=== PATIENT | female | born 1985 | race American Indian/Alaskan Native ===

== ENCOUNTER 2017-07-08 00:04 | Emergency (ER) | payer SELFPAY ==
[2017-07-08] MEDS ORDERED: TYLENOL PO ONE (00:31)
[2017-07-08 02:12] LABS: Bilirubin,Urine NEG (Negative); Blood,Urine MOD (Negative); Ketones,Urine TR mg/dL (Negative); Leukocyte Esterase,Urine NEG (Negative); Mucus,Urine 3+ /HPF; Nitrite,Urine NEG (Negative); Protein,Urine <15 mg/dL mg/dL (Negative)
--- NOTE | 2017-07-08 02:53 | XRay Report ---
FINAL REPORT EXAM: XR FOOT 2V RT HISTORY: glass fell on foot TECHNIQUE: Two views of the right foot were obtained. FINDINGS: There is no evidence of fracture or radiopaque foreign body. The soft tissues well maintained IMPRESSION: Within normal limits. No evidence of radiopaque foreign body.
[2017-07-08] MEDS ORDERED: PERCOCET 5/325 PO ONE ×2 (03:12→04:47)
[2017-07-08] MEDS ORDERED: ZOFRAN ODT PO ONE (03:12)
--- NOTE | 2017-07-08 03:13 | Emergency Department Report ---
- General Chief Complaint: Extremity Injury, Lower Stated Complaint: R FOOT LACERATION Time Seen by Provider: 07/08/17 02:54 Source: patient, family Mode of arrival: Ambulatory Limitations: No Limitations - History of Present Illness Initial Comments: 31-year-old female past medical history none presents with laceration to right anterior ankle. As per patient she was moving a coffee table that had a glass component glass component cracked and a piece of glass fell onto her right foot. Patient has large visible lacerations anterior right ankle/upper dorsal foot region. Tetanus up-to-date as of 2016 as per patient. Wound is covered with gauze upon interview. Patient denies any other injuries. Accompanied by boyfriend at bedside. -: This evening Extremity Location: Right: Ankle (visible laceration right anteriro ankle/upepr foot), Foot 1 - injury here, laceration Place: other (broken glass) Patient Tetanus UTD: Yes (2015) Context: accidental Associated Symptoms: pain Treatments Prior to Arrival: bandage - Related Data Previous Rx's Medication Instructions Recorded Last Taken Type Acetaminophen/Codeine [Tylenol 1 tab PO Q6H PRN #6 tab 07/08/17 Unknown Rx /Codeine # 3 tab] Bacitracin Zinc Oint [Antibiotic 1 applicatio TP BID #1 tube 07/08/17 Unknown Rx Oint] Cephalexin [Keflex] 500 mg PO BID #14 capsule 07/08/17 Unknown Rx Ibuprofen [Motrin] 400 mg PO Q8H PRN #30 tablet 07/08/17 Unknown Rx Allergies Allergy/AdvReac Type Severity Reaction Status Date / Time No Known Allergies Allergy Verified 07/08/17 03:02 ED Review of Systems ROS: Stated complaint: R FOOT LACERATION Other details as noted in HPI Constitutional: denies: chills, fever Eyes: denies: eye pain, eye discharge, vision change ENT: denies: ear pain, throat pain Respiratory: denies: cough, shortness of breath, wheezing Cardiovascular: denies: chest pain, palpitations Endocrine: no symptoms reported Gastrointestinal: denies: abdominal pain, nausea, diarrhea Genitourinary: denies: urgency, dysuria, discharge Musculoskeletal: denies: back pain, joint swelling, arthralgia Skin: denies: rash, lesions Neurological: denies: headache, weakness, paresthesias Psychiatric: denies: anxiety, depression Hematological/Lymphatic: denies: easy bleeding, easy bruising ED Past Medical Hx - Past Medical History Previous Medical History?: Yes Hx Asthma: Yes - Surgical History Past Surgical History?: No - Social History Smoking Status: Current Every Day Smoker Substance Use Type: Alcohol - Medications Home Medications: Home Medications Medication Instructions Recorded Confirmed Last Taken Type Acetaminophen/Codeine [Tylenol 1 tab PO Q6H PRN #6 tab 07/08/17 Unknown Rx /Codeine # 3 tab] Bacitracin Zinc Oint [Antibiotic 1 applicatio TP BID #1 tube 07/08/17 Unknown Rx Oint] Cephalexin [Keflex] 500 mg PO BID #14 capsule 07/08/17 Unknown Rx Ibuprofen [Motrin] 400 mg PO Q8H PRN #30 tablet 07/08/17 Unknown Rx ED Physical Exam - General Limitations: No Limitations General appearance: alert, in no apparent distress - Head Head exam: Present: atraumatic, normocephalic - Eye Eye exam: Present: normal appearance, PERRL, EOMI - ENT ENT exam: Present: mucous membranes moist - Neck Neck exam: Present: normal inspection, full ROM - Respiratory Respiratory exam: Present: normal lung sounds bilaterally. Absent: respiratory distress - Cardiovascular Cardiovascular Exam: Present: regular rate, normal rhythm. Absent: systolic murmur, diastolic murmur, rubs, gallop - GI/Abdominal GI/Abdominal exam: Present: soft, normal bowel sounds - Extremities Exam Extremities exam: Present: normal inspection - Expanded Lower Extremity Exam Right Knee exam: Present: normal inspection, full ROM Lower Leg exam: Present: normal inspection, full ROM Ankle exam: Present: laceration (laceration anteriro ankle) Foot/Toe exam: Present: laceration Neuro vascular tendon exam: Present: no vascular compromise (distal DP and PT pulses intact) 1 - laceration here - Back Exam Back exam: Present: normal inspection - Neurological Exam Neurological exam: Present: alert, oriented X3 - Psychiatric Psychiatric exam: Present: normal affect, normal mood - Skin Skin exam: Present: warm, dry, intact, normal color. Absent: rash ED Course Vital Signs 07/08/17 07/08/17 07/08/17 00:25 00:34 05:00 Temperature 98.4 F Pulse Rate 100 H Respiratory 18 18 18 Rate Blood Pressure 108/67 Blood Pressure [Right] O2 Sat by Pulse 100 Oximetry 07/08/17 05:10 Temperature Pulse Rate 96 H Respiratory 18 Rate Blood Pressure Blood Pressure 110/72 [Right] O2 Sat by Pulse 99 Oximetry - Laceration /Wound Repair Right Distal Dorsal Foot Wound Location: lower extremity (right top of foot) Wound Length (cm): 9 Wound's Depth, Shape: superficial, irregular Wound Explored: clean Irrigated w/ Saline (ccs): 1,000 Betadine Prep?: Yes Anesthesia: 1% Lidocaine Volume Anesthetic (ccs): 8 Wound Debrided: minimal Wound Repaired With: sutures Suture Size/Type: 3:0, nylon Number of Sutures: 5 Layer Closure?: No Sterile Dressing Applied?: Yes (triple abx w/ gauze) Progress: Area infiltrated with lidocaine 1% with epinephrine local anesthesia achieved approximately 8 mL used. Wound cleaned thoroughly with 1 L of normal saline and mixture of iodine and water. 5 loose external sutures placed using 3-0 nylon. Case discussed with Dr. Arias before closure performed. Procedure tolerated well with minimal bleeding. Wound wrapped with Kerlix gauze afterward. ED Medical Decision Making - Medical Decision Making A/P: right foot Laceration 1-5 nylon sutures loosely placed. sutures to be removed in 14 days. Patient provided with postop shoe and crutches for comfort. 2-tetanus upto date as of 2015 as per pt 3-Motrin when necessary, antibiotic ointment, course of keflex 4- pt advised to return to the ED for any fevers chills pus drainage erythema at site of laceration Critical care attestation.: If time is entered above; I have spent that time in minutes in the direct care of this critically ill patient, excluding procedure time. ED Disposition Clinical Impression: Foot laceration Qualifiers: Encounter type: initial encounter Laterality: right Qualified Code(s): S91.311A - Laceration without foreign body, right foot, initial encounter Disposition: DC-01 TO HOME OR SELFCARE Is pt being admited?: No Does the pt Need Aspirin: No Condition: Stable Instructions: Suture Care (ED), Laceration (ED), Acute Wound Care (ED) Prescriptions: Acetaminophen/Codeine [Tylenol /Codeine # 3 tab] 1 tab PO Q6H PRN #6 tab PRN Reason: Pain Bacitracin Zinc Oint [Antibiotic Oint] 1 applicatio TP BID #1 tube Cephalexin [Keflex] 500 mg PO BID #14 capsule Ibuprofen [Motrin] 400 mg PO Q8H PRN #30 tablet PRN Reason: Pain Referrals: PERDO RODRIGUEZ DPM [Staff Physician] - 3-5 Days Forms: Accompanied Note, Work/School Release Form(ED) Time of Disposition: 04:51
[2017-07-08] MEDS ORDERED: NACL 0.9% IR ONE (04:04)
[2017-07-08] MEDS ORDERED: NACL 0.9% 500 ML IR ONE (04:08)
[2017-07-08] MEDS ORDERED: TRIPLE ANTIBIOTIC TP ONE (04:48)
[2017-07-08 05:21] VITALS: BP 110/72
== END 2017-07-08 05:19 | disposition home or self-care (01) ==
LOC: EDSEX → ED 00:04
DX: S91.311A Laceration without foreign body, right foot, initial encounter (principal); J45.909 Unspecified asthma, uncomplicated; F17.200 Nicotine dependence, unspecified, uncomplicated; W20.8XXA Other cause of strike by thrown, projected or falling object, initial encounter; Y93.89 Activity, other specified; Y99.8 Other external cause status; Y92.89 Other specified places as the place of occurrence of the external cause
CPT/HCPCS: 81001; 81025; A6250; Q0162

== ENCOUNTER 2017-08-02 16:58 | Emergency (ER) | payer SELFPAY ==
[2017-08-02 17:55] VITALS: BP 101/53
--- NOTE | 2017-08-02 19:18 | Emergency Department Report ---
Suture/Staple Removal - [facility] Chief Complaint: Laceration/Recheck/Suture Stated Complaint: SUTURE REMOVAL Time Seen by Provider: 08/02/17 19:04 When Sutures or Philip Placed: >14 Days Ago (07/15/2017) Wound Location: right dorsal foot ED Review of Systems ROS: Stated complaint: SUTURE REMOVAL Other details as noted in HPI Constitutional: no symptoms reported, see HPI. denies: chills, diaphoresis, fever, malaise, weakness Respiratory: no symptoms reported, see HPI. denies: cough, orthopnea, shortness of breath, SOB with exertion, SOB at rest, stridor, wheezing Cardiovascular: as per HPI. denies: chest pain, palpitations, dyspnea on exertion, orthopnea, edema, syncope, paroxysmal nocturnal dyspnea Skin: other (healed laceration to right foot) Neurological: as per HPI. denies: headache, weakness, numbness, paresthesias, confusion, abnormal gait, vertigo Psychiatric: as per HPI. denies: anxiety, depression, auditory hallucinations, visual hallucinations, homicidal thoughts, suicidal thoughts ED Past Medical Hx - Past Medical History Previous Medical History?: Yes Hx Asthma: Yes Additional medical history: right foot lac - Social History Smoking Status: Current Every Day Smoker Substance Use Type: Alcohol, Prescribed - Medications Home Medications: Home Medications Medication Instructions Recorded Confirmed Last Taken Type Acetaminophen/Codeine [Tylenol 1 tab PO Q6H PRN #6 tab 07/08/17 Unknown Rx /Codeine # 3 tab] Bacitracin Zinc Oint [Antibiotic 1 applicatio TP BID #1 tube 07/08/17 Unknown Rx Oint] Cephalexin [Keflex] 500 mg PO BID #14 capsule 07/08/17 Unknown Rx Ibuprofen [Motrin] 400 mg PO Q8H PRN #30 tablet 07/08/17 Unknown Rx Suture Removal Exam - Exam General: Vital signs noted. No distress. Alert and acting appropriately. Wound: No Pathologic Erythema (healed laceration, 5 sutures to right dorsal foot ), No Tenderness, No Drainage, No Pus, No Wound Dehiscence Other Systems: All other systems reviewed and are unremarkable. ED Course Vital Signs 08/02/17 17:50 Temperature 98.2 F Pulse Rate 70 Respiratory 16 Rate Blood Pressure 101/53 O2 Sat by Pulse 99 Oximetry ED Recheck MDM - Differential Diagnosis Wound Recheck, Cellultitis Recheck, Suture/Staple Removal Critical care attestation.: If time is entered above; I have spent that time in minutes in the direct care of this critically ill patient, excluding procedure time. ED Disposition Clinical Impression: Visit for suture removal Disposition: TO HOME OR SELFCARE Is pt being admited?: No Does the pt Need Aspirin: No Condition: Stable Instructions: Laceration (ED), Suture Removal (ED) Additional Instructions: Return to ER if you begin to see redness, swelling, discharge, and odor. Follow-up with PCP. Referrals: PRIMARY CARE, [Primary Care Provider] - 3-5 Days [facility] [Outside] - 3-5 Days [facility] [Outside] - 3-5 Days Time of Disposition: 19:36 Print Language: KITTITIAN
== END 2017-08-02 19:39 | disposition home or self-care (01) ==
LOC: ED 16:58
DX: Z48.02 Encounter for removal of sutures (principal)

== ENCOUNTER 2020-04-14 20:30 | Emergency (ER) | payer OTHER | END 2020-04-15 07:18 | disposition left against medical advice (07) | LOC: ED 20:30 | DX: Z53.21 Procedure and treatment not carried out due to patient leaving prior to being seen by health care provider (principal) ==

== ENCOUNTER 2021-09-13 16:45 | Emergency (ER) | payer OTHER ==
[2021-09-13] MEDS ORDERED: IBUPROFEN 800 MG TAB PO ONE (17:10)
--- NOTE | 2021-09-13 17:39 | XRay Report ---
RIGHT FOOT 3 VIEW(S) INDICATION / CLINICAL INFORMATION: injury due to loryat earline COMPARISON: 07/08/2017 FINDINGS: BONES / JOINT(S): No acute fracture or subluxation. No significant arthritis. SOFT TISSUES: No significant abnormality. ADDITIONAL FINDINGS: None. Signer Name: Supa Aggarwal MD Signed: 09/13/2021 5:34 PM Workstation Name: [id number]
--- NOTE | 2021-09-13 18:05 | Emergency Department Report ---
ED Lower Extremity HPI - General Chief Complaint: Extremity Injury, Lower Stated Complaint: FOOT INJURY Time Seen by Provider: 09/13/21 17:34 Source: patient Mode of arrival: Ambulatory Limitations: No Limitations - History of Present Illness Initial Comments: Patient is a 35-year-old female presents emergency room complaints of a right foot injury that occurred prior to arrival. Patient states that she was working with a pallet earline and states that she pushed the handle down and then a little piece of equipment a groove at the lower part hit her foot. She states since then she has been having some foot pain. It has worse pain with movement. She denies any numbness or weakness. Patient denies past medical history. No allergies to medications. she denies any possibility of . - Related Data Previous Rx's Medication Instructions Recorded Last Taken Type Acetaminophen/Codeine [Tylenol 1 tab PO Q6H PRN #6 tab 07/08/17 Unknown Rx /Codeine # 3 tab] Bacitracin Zinc Oint [Antibiotic 1 applicatio TP BID #1 tube 07/08/17 Unknown Rx Oint] Ibuprofen [Motrin] 400 mg PO Q8H PRN #30 tablet 07/08/17 Unknown Rx cephALEXin [Keflex] 500 mg PO BID #14 capsule 07/08/17 Unknown Rx Naproxen 375 mg PO BID PRN #20 09/13/21 Unknown Rx Allergies Allergy/AdvReac Type Severity Reaction Status Date / Time No Known Allergies Allergy Verified 07/08/17 03:02 ED Review of Systems ROS: Stated complaint: FOOT INJURY Other details as noted in HPI Comment: All other systems reviewed and negative ED Past Medical Hx - Past Medical History Hx Asthma: Yes Additional medical history: right foot lac - Social History Smoking Status: Current Every Day Smoker Substance Use Type: Alcohol, Prescribed - Medications Home Medications: Home Medications Medication Instructions Recorded Confirmed Last Taken Type Acetaminophen/Codeine [Tylenol 1 tab PO Q6H PRN #6 tab 07/08/17 Unknown Rx /Codeine # 3 tab] Bacitracin Zinc Oint [Antibiotic 1 applicatio TP BID #1 tube 07/08/17 Unknown Rx Oint] Ibuprofen [Motrin] 400 mg PO Q8H PRN #30 tablet 07/08/17 Unknown Rx cephALEXin [Keflex] 500 mg PO BID #14 capsule 07/08/17 Unknown Rx Naproxen 375 mg PO BID PRN #20 09/13/21 Unknown Rx ED Physical Exam - General Limitations: No Limitations General appearance: alert, in no apparent distress - Head Head exam: Present: atraumatic, normocephalic - Eye Eye exam: Present: normal appearance - ENT ENT exam: Present: mucous membranes moist - Extremities Exam Extremities exam: Present: other (ttp to the right dorsal foot, no deformity, no edema, FROM of the right toes, foot, ankle, neurovascularly intact) - Neurological Exam Neurological exam: Present: alert, oriented X3 - Psychiatric Psychiatric exam: Present: normal affect, normal mood - Skin Skin exam: Present: warm, dry, intact ED Lower Extremity MDM - Radiology Data Radiology results: report reviewed Ordering Physician: GUERLINE YA MD Date of Service: 09/13/21 Procedure(s): XR foot 3+V RT Accession Number(s): [id number] cc: GUERLINE YA MD Fluoro Time In Minutes: RIGHT FOOT 3 VIEW(S) INDICATION / CLINICAL INFORMATION: injury due to pallat earline COMPARISON: 07/08/2017 FINDINGS: BONES / JOINT(S): No acute fracture or subluxation. No significant arthritis. SOFT TISSUES: No significant abnormality. ADDITIONAL FINDINGS: None. Signer Name: Supa Aggarwal MD Signed: 09/13/2021 5:34 PM Workstation Name: [id number] Transcribed By: SS Dictated By: Supa Aggarwal MD Electronically Authenticated By: Supa Aggarwal MD Signed Date/Time: 09/13/211733 DD/ 32 TD/TT: - Medical Decision Making Patient is a 35-year-old female presents emergency room complaints of a right foot injury that occurred prior to arrival. Patient states that she was working with a [employer] earline and states that she pushed the handle down and then a little piece of equipment a groove at the lower part hit her foot. She states since then she has been having some foot pain. It has worse pain with movement. She denies any numbness or weakness. Patient denies past medical history. No allergies to medications. she denies any possibility of . On exam ttp to the right dorsal foot, no deformity, no edema, FROM of the right toes, foot, ankle, neurovascularly intact. x-ray right foot BONES / JOINT(S): No acute fracture or subluxation. No significant arthritis. SOFT TISSUES: No significant abnormality. ADDITIONAL FINDINGS: None. compartments are soft, no signs of significant trauma. Discussed all findings with patient. Patient given crutch es and Gera wrap placed by tech and patient remained neurovascular intact. Advised patient Please take medication as prescribed as needed. May ice for 15 minutes at a time, rest, elevate the leg. Follow-up with a primary care doctor for reexamination. Return to emergency room for any new or worsening symptoms Critical care attestation.: If time is entered above; I have spent that time in minutes in the direct care of this critically ill patient, excluding procedure time. ED Disposition Clinical Impression: Right foot pain Disposition: 01 HOME / SELF CARE / HOMELESS Is pt being admited?: No Does the pt Need Aspirin: No Condition: Stable Instructions: Foot Pain Additional Instructions: Please take medication as prescribed as needed. May ice for 15 minutes at a time, rest, elevate the leg. Follow-up with a primary care doctor for reexamination. Return to emergency room for any new or worsening symptoms Prescriptions: Naproxen 375 mg PO BID PRN #20 PRN Reason: pain Referrals: JIMENEZ CADE MD [Staff Physician] - 3-5 Days [facility] [Provider Group] - 3-5 Days Time of Disposition: 18:04 Print Language: EQUATORIAL GUINEAN
== END 2021-09-13 18:53 | disposition home or self-care (01) ==
LOC: ED 16:45
DX: M79.671 Pain in right foot (principal); J45.909 Unspecified asthma, uncomplicated; F17.200 Nicotine dependence, unspecified, uncomplicated
CPT/HCPCS: 99283